=== PATIENT | female | born 1975 ===

== ENCOUNTER 2016-11-08 13:55 | Emergency (ER) | payer MEDICAID ==
[2016-11-08 14:07] VITALS: BMI 31.1
[2016-11-08 14:10] VITALS: TEMP 98.6; O2SAT 98
--- NOTE | 2016-11-08 14:37 | ED PDOC ---
Arrival/HPI - General Chief Complaint: ENT Problem Time Seen by Provider: 11/08/16 14:25 Historian: Patient - History of Present Illness Narrative History of Present Illness (Text): 11/08/16 14:37 41yo female who present with complaint of right sided upper lip swelling since yesterday. States the swelling is worse today. She notes that she was seen at [facility] yesterday and started Augmentin yesterday. Also states that she is taking Valtrex. States she have had cold sore since she was a child. Also notes that she takes 25mg of Benadryl daily for seasonal allergies. She denies tongue swelling, SOB, chest pain, drooling, stridor, fever, chills, redness, any other complaint. Past Medical History - Provider Review Nursing Documentation Reviewed: Yes - Travel History If Yes, travel location?: [place] - Cardiac Hx Cardiac Disorders: No - Pulmonary Hx Respiratory Disorders: No - Neurological Hx Neurological Disorder: No - HEENT Hx HEENT Disorder: No - Renal Hx Renal Disorder: No - Endocrine/Metabolic Hx Endocrine Disorders: No - Hematological/Oncological Hx Blood Disorders: No - Integumentary Hx Dermatological Disorder: No - Musculoskeletal/Rheumatological Hx Musculoskeletal Disorders: No - Gastrointestinal Hx Gastrointestinal Disorders: No - Genitourinary/Gynecological Hx Genitourinary Disorders: No - Psychiatric Hx Psychophysiologic Disorder: No Hx Substance Use: No - Surgical History Hx Section: Yes Family/Social History - Physician Review Nursing Documentation Reviewed: Yes Family/Social History: Unknown Family HX Smoking Status: Never Smoked Hx Alcohol Use: No Hx Substance Use: No Allergies/Home Meds Allergies/Adverse Reactions: Allergies No Known Allergies Allergy (Verified 11/08/16 14:07) Home Medications: Home Meds Medication Instructions Recorded Confirmed Amoxicillin/Clavulanate [Augmentin 1 tab PO BID 11/08/16 11/08/16 875 MG-125 MG Tab] DiphenhydrAMINE [Benadryl] 1 cap PO PRN PRN 11/08/16 11/08/16 valACYclovir [Valtrex] 2 tab PO BID 11/08/16 11/08/16 Review of Systems - Physician Review All systems were reviewed & negative as marked: Yes - Review of Systems Constitutional: Normal Eyes: Normal ENT: Other (Upper lip swelling) Respiratory: Normal Cardiovascular: Normal Gastrointestinal: Normal Genitourinary Female: Normal Musculoskeletal: Normal Skin: Normal Neurological: Normal Endocrine: Normal Hemo/Lymphatic: Normal Psychiatric: Normal Physical Exam Vital Signs Reviewed: Yes Vital Signs Temp Pulse Resp BP Pulse Ox 11/08/16 14:07 98.6 F 77 16 126/89 98 Temperature: Afebrile Blood Pressure: Normal Pulse: Regular Respiratory Rate: Normal Appearance: Positive for: Well-Appearing, Non-Toxic, Comfortable Pain Distress: None Mental Status: Positive for: Alert and Oriented X 3 - Systems Exam Head: Present: Atraumatic, Normocephalic Pupils: Present: PERRL Extroacular Muscles: Present: EOMI Conjunctiva: Present: Normal Mouth: Present: Moist Mucous Membranes, Normal Tounge. No: Drooling, Trismus, Normal Lips (Right sided upper lip noted with focal cluster of vesicular rash noted) Pharnyx: No: Strider Neck: Present: Normal Range of Motion Respiratory/Chest: Present: Clear to Auscultation, Good Air Exchange. No: Respiratory Distress, Accessory Muscle Use Cardiovascular: Present: Regular Rate and Rhythm, Normal S1, S2. No: Murmurs Abdomen: Present: Normal Bowel Sounds. No: Tenderness, Distention, Peritoneal Signs Back: Present: Normal Inspection Upper Extremity: Present: Normal Inspection. No: Cyanosis, Edema Lower Extremity: Present: Normal Inspection. No: Edema Neurological: Present: GCS=15, CN II-XII Intact, Speech Normal Skin: Present: Warm, Dry, Normal Color. No: Rashes Psychiatric: Present: Alert, Oriented x 3, Normal Insight, Normal Concentration Medical Decision Making ED Course and Treatment: 11/08/16 16:24 Pt in ED for stated history. Hemodynamically stable. Afebrile. No stridor. No drooling. No respiratory distress was noted in ED. Lab was unremarkable. Pt was treated with Solu medrol and pepcid in ED. Very mild improvement was noted with swelling. Pt symptoms seems likely secondary to allergic reaction from unknown cause. She denies any new inciting factors. States she had allergy test in the past and everything was negative. - Lab Interpretations Lab Results: 11/08/16 14:56 11/08/16 14:56 Lab Results 11/08/16 14:56: WBC 5.8, RBC 4.47, Hgb 13.0, Hct 38.8, MCV 86.8, MCH 29.1, MCHC 33.5, RDW 12.9, Plt Count 304, MPV 10.4, Gran % 56.4, Lymph % (Auto) 31.8, [place] % (Auto) 10.4 H, Eos % (Auto) 1.2 L, Baso % (Auto) 0.2, Gran # 3.24, Lymph # 1.8 , [place] # 0.6, Eos # 0.1, Baso # 0.01, Sodium 140, Potassium 3.9, Chloride 103, Carbon Dioxide 29, Anion Gap 12, BUN 12, Creatinine 0.9, Est GFR ( Amer) > 60, Est GFR (Non-Af Amer) > 60, Random Glucose 88, Calcium 9.1, Total Bilirubin 0.7, AST 47 H, ALT 47, Alkaline Phosphatase 71, Total Protein 7.9, Albumin 4.0, Globulin 3.9, Albumin/Globulin Ratio 1.0 L - Medication Orders Current Medication Orders: Discontinued Medications Famotidine (Pepcid) 20 mg IVP STAT STA Stop: 11/08/16 14:36 Last Admin: 11/08/16 14:59 Dose: 20 MG IVP Administration Document 11/08/16 14:59 SS (Rec: 11/08/16 14:59 SS [id number]) Charges for Administration # of IVP Administrations 1 Methylprednisolone (Solu-Medrol) 125 mg IVP STAT STA Stop: 11/08/16 14:37 Last Admin: 11/08/16 14:59 Dose: 125 MG IVP Administration Document 11/08/16 14:59 SS (Rec: 11/08/16 14:59 SS [id number]) Charges for Administration # of IVP Administrations 1 Disposition/Present on Arrival - Present on Arrival Any Indicators Present on Arrival: No History of DVT/PE: No History of Uncontrolled Diabetes: No Urinary Catheter: No History of Decub. Ulcer: No History Surgical Site Infection Following: None - Disposition Have Diagnosis and Disposition been Completed?: Yes Diagnosis: Allergic reaction Disposition: HOME/ ROUTINE Disposition Time: 16:30 Patient Plan: Discharge Condition: STABLE Discharge Instructions (ExitCare): [facility] (ED) Additional Instructions: Follow up with your Doctor/Business Asst Return to ED for any new or worsening symptoms Prescriptions: DiphenhydrAMINE [Benadryl] 25 mg PO Q4H #30 cap Famotidine [Pepcid] 20 mg PO DAILY #10 tab predniSONE [Prednisone] 20 mg PO BID #8 tab Referrals: PCP,NO [Primary Care Provider] - Follow up with primary Dereck Herrera MD [Staff Provider] - Follow up with primary
[2016-11-08 15:07] LABS: ADD MANUAL DIFF? NO
[2016-11-08 15:12] LABS: BASO # 0.01 K/mm3 (0.0-2.0); BASO % 0.2 % (0.0-3.0); EOS # 0.1 (0.0-0.7); EOS % 1.2 % (1.5-5.0); GRAN # 3.24 (1.4-6.5); GRAN % 56.4 % (50.0-68.0); HEMATOCRIT 38.8 % (36.0-48.0); LYMPH # 1.8 (1.2-3.4); LYMPH % 31.8 % (22.0-35.0); MEAN CELL VOLUME 86.8 fL (80.0-105.0); MEAN CORPUSCULAR HEMOGLOBIN 29.1 pg (25.0-35.0); MEAN CORPUSCULAR HGB CONC 33.5 g/dl (31.0-37.0); MEAN PLATELET VOLUME 10.4 fl (7.0-11.0); MONO # 0.6 (0.1-0.6); MONO % 10.4 % (1.0-6.0); PLATELET COUNT 304 10^3/uL (120.0-450.0); RED CELL DISTRIBUTION WIDTH 12.9 % (11.5-14.5); WHITE BLOOD COUNT 5.8 10^3/ul (4.5-11.0)
[2016-11-08 15:24] LABS: ALKALINE PHOSPHATASE 71 U/L (38-133); ALT/SGPT 47 U/L (7-56); AST/SGOT 47 U/L (15-39); BILIRUBIN,TOTAL 0.7 mg/dL (0.2-1.3); BLOOD UREA NITROGEN 12 mg/dL (7-21); CALCIUM 9.1 mg/dL (8.4-10.5); CARBON DIOXIDE 29 mmol/L (21-33); CHLORIDE 103 mmol/L (98-107); GFR AFRICAN-AMERICAN > 60; GLUCOSE,RANDOM 88 mg/dL (70-110); POTASSIUM 3.9 mmol/L (3.6-5.0); SODIUM 140 mmol/L (132-148); TOTAL PROTEIN 7.9 g/dL (5.8-8.3)
[2016-11-08 17:02] VITALS: BP 118/66; PULSE 72; RESP 18
== END 2016-11-08 17:02 | disposition home or self-care (01) ==
LOC: ED 13:55
DX: T78.40XA Allergy, unspecified, initial encounter (principal); X58.XXXA Exposure to other specified factors, initial encounter
CPT/HCPCS: 80053; 85025; 96374; 96375; 99283; J2930

== ENCOUNTER 2017-09-10 18:05 | Emergency (ER) | payer MEDICAID, OTHER ==
[2017-09-10 18:36] VITALS: BP 112/80; PULSE 65; RESP 18; TEMP 98.1; O2SAT 100; BMI 28.7
--- NOTE | 2017-09-10 18:57 | ED PDOC ---
Arrival/HPI - General Chief Complaint: Abnormal Skin Integrity Time Seen by Provider: 09/10/17 18:52 Historian: Patient - History of Present Illness Narrative History of Present Illness (Text): 09/10/17 18:54 42 y/o female, no significant pmh, nkda, last tetanus under 5 years ago, c/o rt. hand injury by glass x 6 hours. Pt. stated that she was angry today, punched the glass and sustained abrasion on the rt. hand and finger laceration on the 2nd digit, no numbness or tingling, no dizziness, no headache, no rash, no palpitation, no other medical or psychological complaints. Past Medical History - Provider Review Nursing Documentation Reviewed: Yes - Infectious Disease Hx of Infectious Diseases: None - Cardiac Hx Cardiac Disorders: No - Pulmonary Hx Respiratory Disorders: No - Neurological Hx Neurological Disorder: No - HEENT Hx HEENT Disorder: No - Renal Hx Renal Disorder: No - Endocrine/Metabolic Hx Endocrine Disorders: No - Hematological/Oncological Hx Blood Disorders: No - Integumentary Hx Dermatological Disorder: No - Musculoskeletal/Rheumatological Hx Musculoskeletal Disorders: No - Gastrointestinal Hx Gastrointestinal Disorders: No - Genitourinary/Gynecological Hx Genitourinary Disorders: No - Psychiatric Hx Psychophysiologic Disorder: No Hx Substance Use: No - Surgical History Hx Section: Yes - Anesthesia Hx Anesthesia: Yes Hx Anesthesia Reactions: No Family/Social History - Physician Review Nursing Documentation Reviewed: Yes Family/Social History: Unknown Family HX Smoking Status: Never Smoked Hx Alcohol Use: No Hx Substance Use: No Allergies/Home Meds Allergies/Adverse Reactions: Allergies No Known Allergies Allergy (Verified 09/10/17 18:28) Review of Systems - Review of Systems Constitutional: absent: Fatigue, Fevers Eyes: absent: Vision Changes ENT: absent: Hearing Changes Respiratory: absent: SOB, Cough Cardiovascular: absent: Chest Pain Gastrointestinal: absent: Abdominal Pain, Diarrhea, Nausea, Vomiting Musculoskeletal: absent: Arthralgias, Back Pain Skin: Laceration. absent: Rash, Pruritis, Skin Lesions, Abscess, Ulcer, Cellulitis Neurological: absent: Headache, Dizziness Psychiatric: absent: Anxiety, Depression, Suicidal Ideation Physical Exam Vital Signs Reviewed: Yes Vital Signs Temp Pulse Resp BP Pulse Ox 09/10/17 18:27 98.1 F 65 18 112/80 100 Temperature: Afebrile Blood Pressure: Normal Pulse: Regular Respiratory Rate: Normal Appearance: Positive for: Well-Appearing, Non-Toxic, Comfortable Pain Distress: Mild Mental Status: Positive for: Alert and Oriented X 3 - Systems Exam Head: Present: Atraumatic, Normocephalic Pupils: Present: PERRL Extroacular Muscles: Present: EOMI Conjunctiva: Present: Normal Mouth: Present: Moist Mucous Membranes Neck: Present: Normal Range of Motion Respiratory/Chest: Present: Clear to Auscultation, Good Air Exchange. No: Respiratory Distress, Accessory Muscle Use Cardiovascular: Present: Regular Rate and Rhythm, Normal S1, S2. No: Murmurs Abdomen: Present: Normal Bowel Sounds. No: Tenderness, Distention, Peritoneal Signs Upper Extremity: Present: Normal Inspection, Other (Rt. hand: visible approx. 1cm dorsum laceration noted on the 2nd digit PIPJ with skin flaping puncture wound noted on the 2nd digit proximal phalanx medially region with palpable foreign body?, superficial abrasion approx. 0.5cm noted on the dorsum 3rd/4th/ 5th digit, FROM without limitation, sensation intact, motor 5/5, +radial pulse, no visible foreign bodies, no oozing. ). No: Cyanosis, Edema Lower Extremity: Present: Normal Inspection. No: Edema Neurological: Present: GCS=15, CN II-XII Intact, Speech Normal Skin: Present: Warm, Dry, Normal Color. No: Rashes Psychiatric: Present: Alert, Oriented x 3, Normal Insight, Normal Concentration Medical Decision Making ED Course and Treatment: 09/10/17 20:25 -xray confirmed there is foreign body on the dorsum aspect of the 2nd proximal phalanx medially on the abrasion/puncture wound and not laceration wound. -wound irrigated the rt. hand 2nd digit abrasion puncture wound skin flapping with normal saline and removed the foreign body approx. 0.75cm length puncture glass wound with success with 1 attempt, pt. refused repeat xray as she has to leave at this time, eloped from the ER. -sensation intact, motor 5/5, wound irrigated with normal saline 1000cc, clean with betadine, 1% lidocaine injected approx. 1cc with digital block of the 2nd digit, 5-0 nylon made 3 sutures on the laceration wound which the wound explored by me with no visible foreign body as the laceration wound on the dorsum aspect of the 2nd PIPJ, foreign body removed. , hemostasis obtained, bacitracin and gauze dressing applied, sensation intact, motor 5/5, -Pt. didn't stay for the against medical advice paper or stay for the risk/ benefits. I printed the prescriptions and she didn't take it, didn't take the discharge paper either. -Pt. eloped from the ER as soon as the procedure for the laceration repair and foreign body removal which she stated that has to go get her son, stated that she will return to the ER tomorrow for repeat xray and continue of the care. - RAD Interpretation Radiology Orders: 09/10/17 18:52 HAND RIGHT 3 VIEWS [RAD] Stat trace foreign body on the 2nd proximal phalanx medial region. Cell Attendant Helper: Radiologist - PA / SOCCER REFEREE / Resident Statement / has reviewed & agrees with the documentation as recorded. Disposition/Present on Arrival - Present on Arrival Any Indicators Present on Arrival: No History of DVT/PE: No History of Uncontrolled Diabetes: No Urinary Catheter: No History of Decub. Ulcer: No History Surgical Site Infection Following: None - Disposition Have Diagnosis and Disposition been Completed?: Yes Diagnosis: Finger laceration, Finger abrasion, Foreign body (FB) in soft tissue, Non- compliant patient Disposition: ELOPEMENT - ER ONLY Disposition Time: 18:58 Patient Plan: Other (eloped) Condition: STABLE Prescriptions: Bacitracin OINT 1 applic TP BID #15 g Cephalexin [cephalexin] 500 mg PO TID #30 cap Naproxen 500 mg PO BID PRN #20 tablet PRN Reason: Other Referrals: You Caal MD [Primary Care Provider] - Follow up with primary [facility] [Outside] - Follow up with primary Forms: [employer] (Irish), WORK NOTE
--- NOTE | 2017-09-11 08:08 | RAD ---
PROCEDURE: Right Hand Radiographs. HISTORY: rt. hand 2nd digit finger laceration with glass COMPARISON: None. FINDINGS: BONES: No acute fracture or destructive bony lesion identified. JOINTS: Normal. No osteoarthritic changes. SOFT TISSUES: Linear radiodensity at the medial soft tissues at the distal diaphysis level of the proximal phalanx right index finger is identified likely compatible with retained radiodense foreign body this patient apparently suffer laceration with glass. Remaining soft tissues are unremarkable. OTHER FINDINGS: None. IMPRESSION: Trace residual retained radiodense foreign body is identified at the right index finger proximal phalanx soft tissue level medially. No acute fracture or dislocation.
== END 2017-09-10 21:37 | disposition left against medical advice (07) ==
LOC: ED 18:05
DX: S61.220A Laceration with foreign body of right index finger without damage to nail, initial encounter (principal); W22.8XXA Striking against or struck by other objects, initial encounter; Z91.19 Patient's noncompliance with other medical treatment and regimen